=== PATIENT | female | born 1975 | race American Indian/Alaskan Native ===

== ENCOUNTER 2017-03-24 07:51 | Day surgery (SDC) | payer OTHER ==
[2017-03-18 10:08] LABS: HEMATOCRIT 29.9 % (36.0-47.0); HEMOGLOBIN 9.5 g/dL (12.0-15.5); HGB HCT DIFFERENCE -1.4; MEAN CORPUSCULAR HGB CONC 31.8 g/dL (32.0-36.0); MEAN CORPUSCULAR VOLUME 69 fl (80-97); RED BLOOD COUNT 4.31 10^6/uL (3.72-5.28); RED CELL DISTRIBUTION WIDTH 17.2 % (11.5-14.0); WHITE BLOOD COUNT 7.7 10^3/uL (4.0-10.5)
[2017-03-18 10:13] LABS: APPEARANCE,URINE CLEAR; BILIRUBIN,URINE NEGATIVE (NEGATIVE); GLUCOSE, URINE NEGATIVE (NEGATIVE); KETONES,URINE NEGATIVE (NEGATIVE); LEUKOCYTE ESTERASE,URINE NEGATIVE (NEGATIVE); NITRITE,URINE NEGATIVE (NEGATIVE); PROTEIN,URINE NEGATIVE (NEGATIVE); URINE SPECIFIC GRAVITY 1.002; UROBILINOGEN,URINE NEGATIVE mg/dL (<2.0)
[~2017-03-24 07:51] MED LIST: LACTATED RINGERS 1000 ML IV PRN; LIDOCAINE 0.5% INJ-PF (5 MG/ML) 50 ML SDV SUBCUT PRN; LIDOCAINE 1%/EPINEPHRINE INJ 20 ML VIAL ONE
[2017-03-24] MEDS ORDERED: PROPOFOL INJ 200 MG/20 ML VIAL IV ONE (10:45)
[2017-03-24] MEDS ORDERED: MIDAZOLAM 2 MG/2 ML INJ ONE (10:45)
[2017-03-24] MEDS ORDERED: FENTANYL CITRATE INJ/PF 100 MCG/2 ML AMPUL ONE (10:45)
[2017-03-24] MEDS ORDERED: FENTANYL CITRATE INJ/PF 100 MCG/2 ML AMPUL IV PRN ×3 (11:20)
[2017-03-24] MEDS ORDERED: DIPHENHYDRAMINE HCL 50 MG/ML VIAL IV PRN (11:20)
[2017-03-24] MEDS ORDERED: MORPHINE SULFATE 10 MG/ML INJ IV PRN (11:20)
[2017-03-24] MEDS ORDERED: MEPERIDINE HCL/PF INJ 25 MG/1 ML DISP.SYRIN IV PRN (11:20)
[2017-03-24] MEDS ORDERED: ONDANSETRON HCL INJ/PF 4 MG/2 ML SDV IV PRN ×2 (11:20→12:17)
[2017-03-24] MEDS ORDERED: PROMETHAZINE HCL INJ 25 MG/1 ML VIAL IV PRN (11:20)
[2017-03-24] MEDS ORDERED: OXYCODONE-ACETAMINOPHEN 5-325 MG TABLET PO PRN ×2 (12:19)
[2017-03-24] MEDS ORDERED: RINGERS SOLUTION,LACTATED 1,000 ML IV PRN (12:19)
[2017-03-24] MEDS ORDERED: IBUPROFEN 800 MG TABLET PO PRN (12:19)
[2017-03-24] MEDS ORDERED: HYDROMORPHONE HCL INJ/PF 2 MG/ML AMPULE IV PRN (12:20)
[2017-03-24 13:04] VITALS: BP 129/90
--- NOTE | 2017-04-29 07:04 | Operative Report ---
Operative Report DATE OF SURGERY: 03/24/17 PREOPERATIVE DIAGNOSIS: Menorrhagia, DUB POSTOPERATIVE DIAGNOSIS: GETACHEW OPERATION: EUA, Paracervical Block, Mirena IUD removal, Hysteroscopy, D&C, Taylor IUD placement. SURGEON: KAY SALVADOR ANESTHESIA: GA PROCEDURE: Procedure: EUA, Paracervical Block, Mirena IUD removal, Hysteroscopy, Dilation and Curettage Taylor IUD placement Anesthesia: [Chekan] Anesthesia: LMAC EBL: less than 10ml IVF: [100ml] UOP: void prior to OR Specimens: [EMC] Complications: None Findings:[small anteverted uterus, no adnexal masses, uterus sounded to 8cmm Taylor lot #[id number]] Indications: [41yo with menorrhagia and dysfunctional uterine bleeding and Mirena IUD placement in 2013 with continued heavy and intermittent bleeding despite Mirena. Endometrial biopsy with possible polyp noted in the office. She is unsure if she wants to have children in the future and declines Novasure. The risks, benefits, alternatives were reviewed with the patient and she desires to proceed with the planned procedure.] Procedure: The patient was taken to the Operating Room where general anesthesia was obtained without difficulty. She was prepped and draped in the normal sterile fashion in the dorsal lithotomy position. Exam under anesthesia was performed and noted above. A speculum was placed in the vagina. The anterior cervix was grasped with a single-tooth tenaculum and the uterus sounded to 8 cm after paracervical block was performed with 8 mL of 1% lidocaine with epinephrine. Mirena IUD removed easily. Sequential dilators were then used to dilate the cervix to accommodate the hysteroscope. The hysteroscope was then gently advanced into the uterine cavity in the usual fashion with visualization of the possible endometrial polyp but low lying and not pedunculated and appears as more of proliferative endometrium. Myosure not performed due to unable to discern if actual polyp or proliferative endometrium. At this time gentle curettage was performed until a gritty texture was noted. Taylor IUD was placed in the usual fashion. All instruments were removed from the patient's cervix and vagina. Silver nitrate was applied to the tenaculum site for hemostasis. Sponge lap needle and instrument counts are correct 2. Doxycycline 100mg given IV preop. The patient tolerated the procedure well and was taken to the recovery area awake and in stable condition.
== END 2017-03-24 13:24 | disposition home or self-care (01) ==
LOC: OROUT 07:51
PROVIDERS: ATTEND Student in an Organized Health Care Education/Training Program
PROC: 0UPD7HZ Removal of Contraceptive Device from Uterus and Cervix, Via Natural or Artificial Opening (ICD-10-PCS; 2017-03-24)
PROC: 0UH Female Reproductive System, Insertion (ICD-10-PCS; 2017-03-24)
PROC: 0UDB8ZX Extraction of Endometrium, Via Natural or Artificial Opening Endoscopic, Diagnostic (ICD-10-PCS; principal; 2017-03-24 10:00)
DX: Z87.891 Personal history of nicotine dependence (principal); N92.0 Excessive and frequent menstruation with regular cycle; N71.9 Inflammatory disease of uterus, unspecified; N84.0 Polyp of corpus uteri; D64.9 Anemia, unspecified
CPT/HCPCS: 36415; 85027; 81025; 81001; 88305 ×2; 58558; 58301; 58300; J2250; J3010; J3490; J2704; 952